=== PATIENT | male | born 1955 | race Caucasian/White ===

== ENCOUNTER 2021-01-22 10:08 | Emergency (ER) | payer OTHER ==
[~2021-01-22] VITALS: Ht 170.2 cm; Wt 109.3 kg
[2021-01-22 10:22] VITALS: BP 189/108
--- NOTE | 2021-01-22 10:56 | NUR ---
65-year-old male presents to ED with left knee pain that started three days ago. Pain radiates down from the left knee down the lower extremity, describing it as a sore sensation. Upon assessment, left leg has swelling, skin is flush, nontender, warm, no pitting edema. Patient denies falls or injury to extremity. Patient states he is unable to walk, ambulates with cane, stated that he drove here to facility and was able to ambulate slowly from triage to bed. Denies nausea, vomiting, diarrhea. Skin is pink/warm/dry. a&o x4. Lungs clear bl, heart rate even and regular. Pt denies any fever, cp, sob, or cough at this time. Patient states pain is 9/10 at this time. Vss. patient positioned for comfort. Hob elevated. Bed down. Ermd made aware of pt. pmh: dm2, htn, hyperlipidemia nka med: metformin, atorvastatin, enalapril, aspirin, amlodipine
[2021-01-22] MEDS ORDERED: LIDOCAINE 5% 1 EA PATCH TP SCH (11:00)
[2021-01-22] MEDS ORDERED: KETOROLAC 30 MG/ML VIAL IM ONE (11:00)
[2021-01-22] MEDS ORDERED: ACETAMINOPHEN 325 MG TAB PO ONE (11:00)
--- NOTE | 2021-01-22 11:00 | NUR ---
ermd at bedside assessing pt
--- NOTE | 2021-01-22 11:07 | NUR ---
Jennifer hatch in ED - 01/22/21 at 1110 by [facility] X-Ray at bedside.
--- NOTE | 2021-01-22 11:10 | NUR ---
pt taken to xray at this time via deya
[2021-01-22] MEDS ORDERED: CYCL-711 PO (13:21)
[2021-01-22] MEDS ORDERED: NAPR-54 PO (13:21)
[2021-01-22] MEDS ORDERED: METH4TAB1 PO (13:21)
[2021-01-22 13:42] VITALS: BP 137/81
--- NOTE | 2021-01-22 13:45 | NUR ---
Patient discharged with v/s stable. Written and verbal after care instructions given FOR [facility] and explained. Patient alert, oriented and verbalized understanding of instructions. Ambulatory with steady gait. All questions addressed prior to discharge. ID band removed. Patient advised to follow up with PMD. Rx of FLEXERIL, NAPROXZEN, AND MEDROL given. Patient educated on indication of medication including possible reaction and side effects. Opportunity to ask questions provided and answered.
== END 2021-01-22 13:45 | disposition home or self-care (01) ==
LOC: MED 10:08
DX: M54.50 Low back pain, unspecified (principal); E11.9 Type 2 diabetes mellitus without complications; I10 Essential (primary) hypertension; E78.5 Hyperlipidemia, unspecified; Z79.899 Other long term (current) drug therapy
CPT/HCPCS: 72100; 96372; 99283; J1885

== ENCOUNTER 2021-06-11 06:17 | Emergency (ER) | payer OTHER ==
[~2021-06-11] VITALS: Ht 170.2 cm; Wt 106.6 kg
[~2021-06-11 06:17] MED LIST: CYCL-711 PO; METH4TAB1 PO; NAPR-54 PO
[2021-06-11 06:19] VITALS: BP 152/105
[2021-06-11] MEDS ORDERED: ENAL-197 PO (06:33)
[2021-06-11] MEDS ORDERED: ATOR20TA PO (06:33)
[2021-06-11] MEDS ORDERED: METF-431 PO (06:33)
[2021-06-11] MEDS ORDERED: AMLO2.5T PO (06:33)
[2021-06-11] MEDS ORDERED: ONDANSETRON 4 MG/2 ML VIAL IVP ONE (06:40)
[2021-06-11] MEDS ORDERED: NACL 0.9% 1,000 ML IV ONE (06:40)
[2021-06-11] MEDS ORDERED: KETOROLAC 30 MG/ML VIAL IVP ONE (06:40)
[2021-06-11 07:12] LABS: BASOPHILS # (AUTO) 0.1 K/uL (0.00-0.22); BASOPHILS % (AUTO) 0.5 % (0.0-2.0); EOSINOPHILS # (AUTO) 0.1 K/uL (0-0.4); EOSINOPHILS % (AUTO) 1.1 % (0.0-4.0); HEMATOCRIT 40.9 % (36-52); HEMOGLOBIN 13.5 g/dL (12.0-18.0); LYMPHOCYTES # (AUTO) 2.1 K/uL (2.0-11.5); LYMPHOCYTES % (AUTO) 16.1 % (20.5-51.1); MEAN CORPUSCULAR HEMOGLOBIN 30 pg (27-31); MEAN CORPUSCULAR HGB CONC 33 g/dL (33-37); MEAN CORPUSCULAR VOLUME 89.5 fL (80-94); MONOCYTES # (AUTO) 1.2 K/uL (0.8-1.0); MONOCYTES % (AUTO) 8.8 % (1.7-9.3); NEUTROPHILS # (AUTO) 9.8 K/uL (1.8-7.7); NEUTROPHILS % (AUTO) 73.5 % (42.2-75.2); PLATELET COUNT (AUTO) 243 K/uL (140-450); RED BLOOD CELL COUNT(AUTO) 4.58 MIL/uL (4.20-6.10); RED CELL DISTRIBUTION WIDTH 14.3 % (11.6-13.7); WHITE BLOOD COUNT (AUTO) 13.3 K/uL (4.8-10.8)
[2021-06-11 07:24] LABS: ALBUMIN 3.5 g/dL (3.4-5.0); ANION GAP 12.6 (8-16); CARBON DIOXIDE 24.4 mmol/L (21-32); CREATININE 1.4 mg/dL (0.6-1.3)
[2021-06-11] MEDS ORDERED: HYDROcodone/APAP 10/325 MG 1 TAB TAB PO ONE (08:15)
[2021-06-11] MEDS ORDERED: IBUP-2213 PO (08:25)
[2021-06-11] MEDS ORDERED: TAMS0.4C96 PO (08:25)
[2021-06-11] MEDS ORDERED: HYDR-5080 PO (08:25)
[2021-06-11 09:08] LABS: APPEARANCE,URINE CLEAR (CLEAR); BILIRUBIN,URINE NEGATIVE (NEGATIVE); BLOOD, URINE NEGATIVE (NEGATIVE); COLOR,URINE YELLOW (YELLOW); LEUKOCYTE ESTERASE ,URINE NEGATIVE (NEGATIVE); NITRITE, URINE NEGATIVE (NEGATIVE); UGLUCOSE NEGATIVE (NEGATIVE)
[2021-06-11 09:10] VITALS: BP 143/87
== END 2021-06-11 09:45 | disposition home or self-care (01) ==
LOC: MED 06:17
DX: N20.0 Calculus of kidney (principal); R11.2 Nausea with vomiting, unspecified; E11.9 Type 2 diabetes mellitus without complications; I10 Essential (primary) hypertension; Z79.899 Other long term (current) drug therapy; Z79.84 Long term (current) use of oral hypoglycemic drugs; Z98.890 Other specified postprocedural states
CPT/HCPCS: 36415; 74176; 80053; 81003; 82948; 83690; 85025; 96361; 96374; 96375; 99284; J1885; J2405; J7030